=== PATIENT | male | born 1960 | race Caucasian/White ===

== ENCOUNTER 2019-10-29 11:45 | Inpatient (IN) | payer MEDICARE ==
[~2019-10-29] VITALS: Ht 175.3 cm; Wt 63.6 kg
[2019-10-29] MEDS ORDERED: LISINOPRIL5 MG PO (11:51)
[2019-10-29] MEDS ORDERED: CELEXA10 MG PO (11:52)
[2019-10-29] MEDS ORDERED: TRAZODONE HCL150 MG PO (11:52)
--- NOTE | 2019-10-29 12:00 | NUR ---
FALL RISK BRACELET PLACED ON PT. STAR ON DOOR FRAME.
[2019-10-29 12:14] LABS: UDS - AMPHET NEGATIVE QUAL (NEGATIVE); UDS - BARB NEGATIVE QUAL (NEGATIVE); UDS - BENZO NEGATIVE QUAL (NEGATIVE); UDS - COCAINE NEGATIVE QUAL (NEGATIVE); UDS - OPIATE NEGATIVE QUAL (NEGATIVE); UDS - PCP NEGATIVE QUAL (NEGATIVE); UDS - THC NEGATIVE QUAL (NEGATIVE)
[2019-10-29 12:24] LABS: BASOPHILS 0.1 % (0-2); EOSINOPHILS 0 % (0-7); HEMATOCRIT 45.8 % (42.0-54.0); HEMOGLOBIN 15.5 g/dL (13.5-17.5); IMMATURE GRANULOCYTES 0.2 % (0-5); LYMPHOCYTES 10.5 % (15-50); MCHC 33.8 g/dL (31.0-37.0); MCV 97.4 fL (80.0-100.0); MEAN PLATELET VOLUME 9.7 fL (7.4-10.4); MONOCYTES 8.3 % (2-11); NEUTROPHILS 80.9 % (40-80); PLATELET COUNT 161 10x3/uL (130-400); RDW 13.9 % (11.5-14.5); WBC 12.3 10x3/uL (4.8-10.8)
[2019-10-29 12:31] LABS: CALC OSMOLALITY 266 mosm/kg (275-300); CALCIUM 8.4 mg/dL (8.5-10.1); CARBON DIOXIDE 22.5 mmol/L (21.0-32.0); CHLORIDE - SERUM 96 mmol/L (98-107); CREATININE - SERUM 0.6 mg/dL (0.6-1.3); GLUCOSE 88 mg/dL (74-106); POTASSIUM - SERUM 3.8 mmol/L (3.5-5.1); SODIUM 135 mmol/L (136-145); UREA NITROGEN 7 mg/dL (7-18); eGFR NON AFRICAN AMERICAN > 90 mL/min (90-120)
[2019-10-29 12:35] LABS: APPEARANCE CLEAR (CLEAR); BACTERIA FEW /hpf (NEGATIVE); BILIRUBIN NEGATIVE (NEGATIVE); COLOR YELLOW (YELLOW); EPITHELIAL CELLS OCC /hpf (0-5); GLUCOSE NEGATIVE (NEGATIVE); KETONE MODERATE mg/dL (NEGATIVE); NITRITE NEGATIVE (NEGATIVE); PROTEIN NEGATIVE (NEGATIVE); RED CELLS - URINE OCC /hpf (0-5); UROBILINOGEN NORMAL (NORMAL); WHITE CELLS - URINE RARE /hpf (NEGATIVE)
[2019-10-29 12:38] LABS: APTT 28.1 SECONDS (22.8-39.4); INR 0.92 (0.85-1.17); PROTIME 11.9 SECONDS (11.6-15.0)
[2019-10-29 12:45] LABS: ALBUMIN 3.4 g/dL (3.4-5.0); ALKALINE PHOSPHATASE 112 U/L (46-116); ALT (SGPT) 54 U/L (10-68); BILIRUBIN - TOTAL 0.76 mg/dL (0.2-1.3); CKMB 1.7 U/L (0.0-3.6); CREATINE KINASE 106 UL (21-232); MAGNESIUM - SERUM 1.8 mg/dL (1.8-2.4); PROTEIN - SERUM 7.5 g/dL (6.4-8.2); TROPONIN-I < 0.017 ng/mL (0.000-0.060)
--- NOTE | 2019-10-29 13:31 | NUR ---
VERBAL ORDER FROM JOSSELYN GRIFFITHS TO HOLD MEDICATIONS AT THIS TIME.
--- NOTE | 2019-10-29 14:09 | NUR ---
VERBAL ORDER FROM JOSSELYN GRIFFITHS TO ADMINISTER MEDICATIONS.
--- NOTE | 2019-10-29 14:35 | NUR ---
PT TO CT VIA STRETCHER. BELONGINGS TAKEN FROM PT AND PLACED AT NURSES STATION. PT HAD A BEER AT SINK AND CONT. TO GET UP AFTER BEING INSTRUCTED TO STAY IN BED.
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
--- NOTE | 2019-10-29 16:52 | NUR ---
PT RESTING WITH EYES CLOSED. CONT. TO MONITOR ON CAMERA.
[2019-10-29 19:43] VITALS: BP 144/102
--- NOTE | 2019-10-29 19:48 | NUR ---
BLANKET, PILLOW AND WATER PROVIDED TO PT PER REQUEST. NO SIGNS DISTRESS. WILL CONTINUE TO MONITOR.
--- NOTE | 2019-10-29 21:12 | NUR ---
PT SITTING ON SIDE OF BED, NO SIGNS DISTRESS NOTED. WILL CONTINUE TO MONITOR.
--- NOTE | 2019-10-29 21:40 | NUR ---
E MARKETING SPECIALIST INFORMED THIS NURSE THAT PT STATES "I CANNOT BREATHE." THIS NURSE ASSESSED PT'S SPO2 AT 92% PT PLACED ON 2L/MIN NC, SPO2 NOW 95% PT IS ACTIVELY COUGHING FORCEFULLY. EDP NOTIFIED.
--- NOTE | 2019-10-29 22:22 | NUR ---
PT C/O CHEST PAIN AT THIS TIME 07/27. EDP NOTED
--- NOTE | 2019-10-29 22:30 | NUR ---
PT STATES 9/10 CHEST PAIN LOCATED "ALL OVER" CHEST AFTER FIRST SL NITRO
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
[2019-10-30 00:32] VITALS: BP 116/80; Ht 175.3 cm; Wt 63.6 kg
[2019-10-30 05:27] LABS: CKMB 1.1 U/L (0.0-3.6); CREATINE KINASE 97 UL (21-232); TROPONIN-I < 0.017 ng/mL (0.000-0.060)
--- NOTE | 2019-10-30 07:24 | NUR ---
ALERT AND ORIENTED. PT IS HARD OF HEARING.. PT WILL NOT KEEP HIS MONITOR ON. 02 AT 3 L/M PER NC. LEFT FA SL. MONITOR WHILE ON SHOWED ST110. DENIES ANY NEEDS AT PRESENT TIME. SR UP WITH CALL LIGHT IN REACH, WILL MONITOR
[2019-10-30 08:29] LABS: BASOPHILS 0.1 % (0-2); EOSINOPHILS 0 % (0-7); HEMOGLOBIN 13.5 g/dL (13.5-17.5); IMMATURE GRANULOCYTES 0.2 % (0-5); LYMPHOCYTES 8.2 % (15-50); MCH 32.9 pg (26.0-34.0); MCHC 33.8 g/dL (31.0-37.0); MCV 97.6 fL (80.0-100.0); MEAN PLATELET VOLUME 10.3 fL (7.4-10.4); MONOCYTES 4.6 % (2-11); NEUTROPHILS 86.9 % (40-80); PLATELET COUNT 141 10x3/uL (130-400); WBC 14.5 10x3/uL (4.8-10.8)
[2019-10-30 08:38] LABS: ALBUMIN 2.6 g/dL (3.4-5.0); ALKALINE PHOSPHATASE 89 U/L (46-116); ALT (SGPT) 40 U/L (10-68); CALC OSMOLALITY 272 mosm/kg (275-300); CALCIUM 7.9 mg/dL (8.5-10.1); CARBON DIOXIDE 25.8 mmol/L (21.0-32.0); CHLORIDE - SERUM 101 mmol/L (98-107); CREATININE - SERUM 0.5 mg/dL (0.6-1.3); GLUCOSE 94 mg/dL (74-106); POTASSIUM - SERUM 3.4 mmol/L (3.5-5.1); PROTEIN - SERUM 5.7 g/dL (6.4-8.2); SODIUM 138 mmol/L (136-145); UREA NITROGEN 5 mg/dL (7-18); eGFR NON AFRICAN AMERICAN > 90 mL/min (90-120)
[2019-10-30 09:05] VITALS: BP 143/98
[2019-10-30 11:43] LABS: CKMB 0.8 U/L (0.0-3.6); CREATINE KINASE 98 UL (21-232); TROPONIN-I < 0.017 ng/mL (0.000-0.060)
[2019-10-30 12:41] VITALS: BP 163/80
--- NOTE | 2019-10-30 14:28 | NUR ---
I have reviewed this patient and I concur with the Shift Assessment completed by the Licensed Practical Nurse today this shift.
[2019-10-30 16:11] VITALS: BP 146/91
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
--- NOTE | 2019-10-30 19:39 | NUR ---
RECEIVED REPORT, WILL ASSUME CARE OF PT, SITTING UP IN BED, DENIES ANY NEEDS AT THIS TIME, BED IS LOW, SRX2, CALL LIGHT IN REACH, WILL CONTINUE PLAN OF CARE
[2019-10-30 20:36] VITALS: BP 148/85
[2019-10-31 00:27] VITALS: BP 157/90
--- NOTE | 2019-10-31 01:45 | NUR ---
I have reviewed this patient and I concur with the Shift Assessment completed by the Licensed Practical Nurse today this shift.
[2019-10-31 04:45] VITALS: BP 160/103
[2019-10-31 05:32] LABS: BASOPHILS 0 % (0-2); EOSINOPHILS 0 % (0-7); HEMOGLOBIN 14.7 g/dL (13.5-17.5); IMMATURE GRANULOCYTES 0.3 % (0-5); LYMPHOCYTES 8.2 % (15-50); MCH 32.6 pg (26.0-34.0); MCHC 33.4 g/dL (31.0-37.0); MCV 97.6 fL (80.0-100.0); MEAN PLATELET VOLUME 10.6 fL (7.4-10.4); MONOCYTES 5.7 % (2-11); NEUTROPHILS 85.8 % (40-80); PLATELET COUNT 119 10x3/uL (130-400); RBC 4.51 10x6/uL (4.20-6.10); RDW 13.9 % (11.5-14.5); WBC 11.4 10x3/uL (4.8-10.8)
[2019-10-31 06:23] LABS: CALC OSMOLALITY 277 mosm/kg (275-300); CALCIUM 9.4 mg/dL (8.5-10.1); CARBON DIOXIDE 27.5 mmol/L (21.0-32.0); CHLORIDE - SERUM 103 mmol/L (98-107); CREATININE - SERUM 0.5 mg/dL (0.6-1.3); GLUCOSE 109 mg/dL (74-106); MAGNESIUM - SERUM 2.1 mg/dL (1.8-2.4); PHOSPHOROUS 3.5 mg/dL (2.5-4.9); POTASSIUM - SERUM 3.3 mmol/L (3.5-5.1); SODIUM 139 mmol/L (136-145); eGFR NON AFRICAN AMERICAN > 90 mL/min (90-120)
[2019-10-31 06:41] LABS: UREA NITROGEN 9 mg/dL (7-18)
[2019-10-31 08:28] VITALS: BP 122/82
[2019-10-31 12:00] VITALS: BP 127/73
[2019-10-31 16:32] VITALS: BP 138/87
--- NOTE | 2019-10-31 17:45 | NUR ---
RECEIVED REPORT, WILL ASSUME CARE OF PT, DENIES ANY NEEDS AT THIS TIME, BED IS LOW, SRX2, CALL LIGHT IN REACH, WILL CONTINUE PLAN OF CARE
--- NOTE | 2019-10-31 18:11 | NUR ---
HAYLEE FARIAS RESITED 20G. IV TO RFA, I ATTEMPT
--- NOTE | 2019-10-31 18:13 | NUR ---
HAYLEE FARIAS RESITED 20G.IV TO LFA, 1 ATTEMPT
[2019-10-31 20:45] VITALS: BP 147/89
[2019-11-01 00:30] VITALS: BP 138/86
--- NOTE | 2019-11-01 04:23 | NUR ---
I have reviewed this patient and I concur with the Shift Assessment completed by the Licensed Practical Nurse today this shift.
[2019-11-01 04:30] VITALS: BP 134/79
[2019-11-01 05:40] LABS: HEMATOCRIT 42.5 % (42.0-54.0); HEMOGLOBIN 13.6 g/dL (13.5-17.5); MCH 31.6 pg (26.0-34.0); MCV 98.8 fL (80.0-100.0); PLATELET COUNT 126 10x3/uL (130-400); RDW 14.1 % (11.5-14.5)
[2019-11-01 05:41] LABS: WBC 8.5 10x3/uL (4.8-10.8)
[2019-11-01 06:01] LABS: EOSINOPHILS 1 % (0-7); LYMPHOCYTES 20 % (15-50); MONOCYTES 7 % (2-11); NEUTROPHILS 72 % (40-80)
[2019-11-01 06:02] LABS: PLATELET ESTIMATE DECREASED; PLATELET MORPHOLOGY GIANT PLTS PRESENT
[2019-11-01 06:04] LABS: ALBUMIN 2.3 g/dL (3.4-5.0); ALKALINE PHOSPHATASE 73 U/L (46-116); ALT (SGPT) 35 U/L (10-68); BILIRUBIN - TOTAL 0.67 mg/dL (0.2-1.3); CALC OSMOLALITY 279 mosm/kg (275-300); CALCIUM 8.4 mg/dL (8.5-10.1); CARBON DIOXIDE 27.8 mmol/L (21.0-32.0); CHLORIDE - SERUM 106 mmol/L (98-107); CREATININE - SERUM 0.6 mg/dL (0.6-1.3); GLUCOSE 78 mg/dL (74-106); POTASSIUM - SERUM 3.2 mmol/L (3.5-5.1); SODIUM 141 mmol/L (136-145); eGFR NON AFRICAN AMERICAN > 90 mL/min (90-120)
[2019-11-01 06:13] LABS: UREA NITROGEN 12 mg/dL (7-18)
--- NOTE | 2019-11-01 07:20 | NUR ---
RECIEVE REPORT. ALERT AND ORIENTED X4. SITTING UP IN BED. DENIES ANY NEEDS AT THIS TIME. CONTINUE PLAN OF CARE AND SAFETY PRECAUTIONS.
[2019-11-01 09:20] VITALS: BP 154/79
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
[2019-11-01] MEDS ORDERED: LEVOFLOXACIN500 MG PO (12:27)
[2019-11-01] MEDS ORDERED: VITAMIN B-1100 M1 PO (12:28)
[2019-11-01] MEDS ORDERED: MULTI-DAY VITAM1 TAB PO (12:28)
[2019-11-01] MEDS ORDERED: FOLIC ACID1 MG PO (12:28)
[2019-11-01] MEDS ORDERED: ALBUTEROL SULF8.5 GM INH (12:29)
[2019-11-01] MEDS ORDERED: STERAPRED DS 1010 MG PO (12:29)
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
[2019-11-01 13:01] VITALS: BP 157/98
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
[2019-11-01 13:41] VITALS: BP 157/98
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
--- NOTE | 2019-11-02 13:07 | EC ---
PATIENT:EDY CAUSEY DATE OF SERVICE: 10/30/19 SEX: M MEDICAL RECORD: [id number] DATE OF : [birth year] LOCATION:D.M2 D.212 AGE OF PATIENT: 59 ADMISSION DATE: 10/30/19 REFERRING PHYSICIAN: INTERPRETING PHYSICIAN: WELLINGTON PARMAR MD ECHOCARDIOGRAM REPORT ECHO CHARGES 5 ECHO LIMITED Date: 10/30/19 CLINICAL DIAGNOSIS: CHEST PAIN HX COPD, SEIZURES/ HTN ECHOCARDIOGRAPHIC MEASUREMENTS (adult normal given) AC root (d.<3.7cm) 2.7 cm LV Septum d (<1.2 cm> 1.4 cm Valve Excursion 1.9 cm LV Septum (systole) 1.5 cm Left Atria (s.<4.0cm> 3.0 cm LVPW d(<1.2cm) 1.5 cm RV (d.<2.3cm) 3.1 cm LVPW (sytole) 1.6 cm LV diastole(<5.6CM) 4.9 cm MV E-F(>70mm/sec) cm LV systole 3.5 cm LVOT Diameter 1.9 cm MV exc.(>10mm) 1.2 cm Est.ejection fraction (50-75%) % DOPPLER: LVIT cm/sec A 59.0 cm/sec E 108.0 cm/sec LA cm/sec RVSP 18 mmHg LVOT cm/sec AOP1/2T m/s Asc. Ao cm/sec RVOT cm/sec RA cm/sec PA cm/sec AV Gradient Peak mmHg AV Mean mmHg AV Area cm MV Gradient Peak 5.18 mmHg MV Mean 2.15 mmHg MV Area cm COMMENTS: Supervisor Assembly And Packing: 2 [place] Manager Change: 3 Dr. Benavides TAPE# PACS Pericardial Effusion N DATE OF SERVICE: Adequate 2D Echo, Color Flow, Spectral Doppler, And M-Mode Mild LVH. LV internal dimension is normal. Wall motion is normal. EF is greater than or equal to 55%. Aortic valve is tricuspid. No evidence of stenosis by Doppler interrogation. Left atrium normal at 3.0 cm. Mitral valve shows no prolapse. Trace MR. Right-sided chambers are grossly normal. Trace TR. ECHOCARDIOGRAM REPORT [id number] EDY CAUSEY TRANSINT:[id number] Voice Confirmation ID: [id number] DOCUMENT ID: [id number] WELLINGTON PARMAR MD at 1307 CC: [id number] DICTATION DATE: 10/31/19 1025 YARN WASHER: 10/31/192 DIS IN 11/01/19 [id number] [place] [address]
--- NOTE | 2019-11-02 13:07 | CN ---
PATIENT NAME:EDY CAUSEY MEDICAL RECORD: [id number] : 56 LOCATION:[facility].2123 ADMIT DATE: 10/30/19 ACCOUNT: [id number] CONSULTING PHYSICIAN: WELLINGTON PARMAR MD REFERRING PHYSICIAN: SURAJ SILVERMAN MD DATE OF CONSULTATION: 10/30/2019 HISTORY OF PRESENT ILLNESS: A 59-year-old gentleman, questionable history of coronary disease. He has a history of obstructive pulmonary disease, here from [place], currently homeless. He reports having multiple seizures over the last 24 hours. Longstanding history of seizures. Followed by a physician. He has home in [place]. He reports drinking beer fairly frequently, they can be on a daily basis with hard liquor on occasion. Also has a vague history of chest pain, some pleuritic. Also wheezing, coughing. We are asked to see him concerning his cardiovascular status. PAST MEDICAL HISTORY: Includes; 1. History of hypertension. 2. Seizure disorder. 3. Questionable cardiac history. ALLERGIES: None known. MEDICATIONS: Per med tech: Lisinopril 5 mg p.o. daily, Celexa 10 mg p.o. daily, trazodone 150 at bedtime. SOCIAL HISTORY: Currently homeless, arriving here from [place]. Smokes about a pack a day. Drinks alcohol on a daily basis. No illicit drug use. REVIEW OF SYSTEMS: The patient reports easy bruising but reports no swollen glands. The patient reports no fever, no night sweats, no significant weight gain, no significant weight loss. No significant exercise tolerance. The patient reports no dry eyes, no irritation, no vision change. Patient reports no difficulty hearing and no ear pain. Patient reports no frequent nose bleeds or nose and sinus problems. Patient reports on arm pain on exertion. No shortness of breath while lying down. No history of heart murmur. Patient reports no cough, no wheezing or coughing up blood. Patient reports no abdominal pain, no vomiting. Normal appetite. No diarrhea and not vomiting blood. No nausea and no constipation. Patient reports no incontinence. No difficulty urinating. No hematuria. No increased frequency. Patient reports no muscle aches. No weakness, no arthralgias, no back pain. No swelling of the extremities. Patient reports no abnormal mole, no jaundice, no rashes. Reports no loss of consciousness. No weakness and no numbness. No seizures, dizziness, or headaches. The patient reports no depression, no sleep disturbance, feeling safe in a relationship and no alcohol abuse. Patient reports on fatigue. Reports no runny nose or sinus pressure. No itching, no hives, and no frequent sneezing. PHYSICAL EXAMINATION: GENERAL: Somewhat tremulous, unkempt, no acute distress. VITAL SIGNS: Blood pressure 116/88, pulse 126 and regular. HEENT: Normocephalic, atraumatic. HEART: Regular, tachycardic. Questionable S3 gallop. LUNGS: Expiratory wheezes in all lung lees. ABDOMEN: Soft, nontender. CONSULT REPORT [id number] EDY CAUSEY EXTREMITIES: Pulse preserved, 2+ with no edema. DIAGNOSTIC DATA: ECG shows left bundle, secondary ST-T changes. IMPRESSION: At this point, given wheezing, some pleuritic component of chest pain, we will dose with steroids, one dose. Agree with serial enzymes. For underlying left bundle-branch block, I will check echocardiographic study to make sure no underlying alcoholic cardiomyopathic process. Further recommendations based on clinical course. TRANSINT:[id number] Voice Confirmation ID: [id number] DOCUMENT ID: [id number] WELLINGTON PARMAR MD at 1307 CC: [id number] DICTATION DATE: 10/30/19801 PCB DESIGN ENGINEER: 10/30/19924 DIS IN 11/01/19 [facility] [address] [place] [address]
== END 2019-11-01 13:52 | disposition home or self-care (01) | DRG 896 ==
LOC: D.ER 11:45 → D.M2 22:28 → OBSVTIME 22:28 → D.M2 10-30 16:29
PROVIDERS: Emergency Medicine; Family Medicine; Internal Medicine Nephrology; ADMIT Emergency Medicine; ATTEND Emergency Medicine
DX: F10.129 Alcohol abuse with intoxication, unspecified (principal); J96.01 Acute respiratory failure with hypoxia; F17.213 Nicotine dependence, cigarettes, with withdrawal; R91.8 Other nonspecific abnormal finding of lung field; J43.9 Emphysema, unspecified; I10 Essential (primary) hypertension; E87.6 Hypokalemia; Y90.8 Blood alcohol level of 240 mg/100 ml or more; Z59.0 Homelessness; I25.119 Atherosclerotic heart disease of native coronary artery with unspecified angina pectoris